=== PATIENT | female | born 1935 | race Two or more races ===

== ENCOUNTER 2018-01-11 14:01 | Outpatient (CLI) | payer OTHER | END 2018-01-11 14:10 | disposition home or self-care (01) | LOC: RAD 501 14:01 | DX: M54.5 Low back pain (principal); M25.552 Pain in left hip ==

== ENCOUNTER → 2018-01-13 | Outpatient (CLI) | payer OTHER | END | disposition home or self-care (01) | LOC: RAD 501 15:21 | DX: M54.2 Cervicalgia (principal) ==

== ENCOUNTER 2020-03-20 12:17 | Outpatient (CLI) | payer OTHER | END 2020-03-20 12:25 | disposition home or self-care (01) | LOC: RAD 12:17 | PROVIDERS: ATTEND Physical Medicine & Rehabilitation | DX: M25.462 Effusion, left knee (principal); M17.11 Unilateral primary osteoarthritis, right knee; Z91.81 History of falling ==

== ENCOUNTER → 2020-04-08 | Outpatient (CLI) | payer OTHER | END | disposition home or self-care (01) | LOC: MAMO-SONO 09:39 | PROVIDERS: ATTEND Internal Medicine Geriatric Medicine | DX: Z12.31 Encounter for screening mammogram for malignant neoplasm of breast (principal); D24.2 Benign neoplasm of left breast; D24.1 Benign neoplasm of right breast ==

== ENCOUNTER 2020-05-22 08:06 | Outpatient (CLI) | payer OTHER | END 2020-05-22 08:12 | disposition HB | LOC: MRI 08:06 | PROVIDERS: ATTEND Internal Medicine Geriatric Medicine | DX: Q44.6 Cystic disease of liver (principal); N28.89 Other specified disorders of kidney and ureter; R11.13 Vomiting of fecal matter; Q45.3 Other congenital malformations of pancreas and pancreatic duct; D49.0 Neoplasm of unspecified behavior of digestive system | CPT/HCPCS: 74181 ==

== ENCOUNTER 2021-06-24 10:52 | Outpatient (CLI) | payer OTHER | END 2021-06-24 10:55 | disposition home or self-care (01) | LOC: RAD 10:52 | PROVIDERS: ATTEND Physical Medicine & Rehabilitation | DX: M25.561 Pain in right knee (principal); M25.562 Pain in left knee ==

== ENCOUNTER 2021-07-14 08:21 | Outpatient (CLI) | payer OTHER | END 2021-07-14 08:29 | disposition home or self-care (01) | LOC: MAMO-SONO 08:21 | PROVIDERS: ATTEND Internal Medicine Geriatric Medicine | DX: Z80.3 Family history of malignant neoplasm of breast (principal) ==

== ENCOUNTER 2022-06-23 10:51 | Outpatient (CLI) | payer OTHER | END 2022-06-23 10:57 | disposition home or self-care (01) | LOC: SONOGRAMA 10:51 | PROVIDERS: ATTEND Specialist | DX: N39.0 Urinary tract infection, site not specified (principal) ==

== ENCOUNTER 2022-07-14 12:45 | Outpatient (CLI) | payer OTHER | END 2022-07-14 12:54 | disposition home or self-care (01) | LOC: TOM 12:45 | PROVIDERS: ATTEND Specialist | DX: N20.0 Calculus of kidney (principal) ==

== ENCOUNTER 2022-07-22 09:06 | Outpatient (CLI) | payer OTHER | END 2022-07-22 09:13 | disposition home or self-care (01) | LOC: MAMO-SONO 09:06 | PROVIDERS: ATTEND Internal Medicine Geriatric Medicine | DX: N60.19 Diffuse cystic mastopathy of unspecified breast (principal); D24.9 Benign neoplasm of unspecified breast; Z80.3 Family history of malignant neoplasm of breast ==

== ENCOUNTER 2022-08-20 11:53 | Outpatient (CLI) | payer OTHER | END 2022-08-20 12:04 | disposition home or self-care (01) | LOC: RAD 11:53 | PROVIDERS: ATTEND Physical Medicine & Rehabilitation | DX: M25.561 Pain in right knee (principal); M25.562 Pain in left knee; M54.59 Other low back pain ==

== ENCOUNTER 2022-10-06 13:22 | Emergency (ER) | payer OTHER ==
[~2022-10-06] VITALS: Ht 154.9 cm; Wt 60.8 kg
[2022-10-06] MEDS ORDERED: CARVEDILOL12.5 M1 (14:42)
[2022-10-06] MEDS ORDERED: CITALOPRAM HBR10 MG (14:43)
[2022-10-06] MEDS ORDERED: ALTACE1.25 MG (14:43)
[2022-10-06] MEDS ORDERED: ZOCOR20 MG (14:44)
[2022-10-06] MEDS ORDERED: CARVEDILOL12.5 MG (14:44)
[2022-10-06] MEDS ORDERED: XANAX XR0.5 MG (14:46)
== END 2022-10-06 17:57 | disposition home or self-care (01) ==
LOC: ER 13:22
DX: S29.012A Strain of muscle and tendon of back wall of thorax, initial encounter (principal); X58.XXXA Exposure to other specified factors, initial encounter; Y93.89 Activity, other specified; Y92.9 Unspecified place or not applicable; Y99.9 Unspecified external cause status; I10 Essential (primary) hypertension; Z88.8 Allergy status to other drugs, medicaments and biological substances

== ENCOUNTER 2023-01-27 10:24 | Outpatient (CLI) | payer OTHER ==
[~2023-01-27 10:24] MED LIST: ALTACE1.25 MG; ALTACE10 MG PO; CARVEDILOL12.5 M1; CARVEDILOL12.5 MG; CITALOPRAM HBR10 MG; HYDRODIURIL12.5 MG PO; MACRODANTIN100 M1 PO; NEURONTIN300 MG PO; XANAX XR0.5 MG; ZOCOR20 MG; ZOCOR20 MG PO
== END 2023-01-27 10:34 | disposition home or self-care (01) ==
LOC: MRI 10:24
PROVIDERS: ATTEND Physical Medicine & Rehabilitation
DX: M54.6 Pain in thoracic spine (principal)
CPT/HCPCS: 72146

== ENCOUNTER 2023-02-04 07:09 | Emergency (ER) | payer OTHER ==
[~2023-02-04] VITALS: Ht 154.9 cm; Wt 61.2 kg
== END 2023-02-04 08:31 | disposition home or self-care (01) ==
LOC: ER 07:10
DX: H81.10 Benign paroxysmal vertigo, unspecified ear (principal)

== ENCOUNTER 2023-03-09 08:55 | Outpatient (CLI) | payer OTHER | END 2023-03-09 09:03 | disposition home or self-care (01) | LOC: RAD 08:55 | PROVIDERS: ATTEND Physical Medicine & Rehabilitation | DX: M25.562 Pain in left knee (principal); Z88.2 Allergy status to sulfonamides; Z91.041 Radiographic dye allergy status ==

== ENCOUNTER 2023-04-05 13:44 | Outpatient (CLI) | payer OTHER | END 2023-04-05 13:49 | disposition home or self-care (01) | LOC: RAD 13:44 | PROVIDERS: ATTEND Internal Medicine Geriatric Medicine | DX: S09.90XA Unspecified injury of head, initial encounter (principal); M54.59 Other low back pain; M54.6 Pain in thoracic spine ==

== ENCOUNTER 2023-04-30 09:14 | Outpatient (CLI) | payer OTHER | END 2023-04-30 09:35 | disposition home or self-care (01) | LOC: TOM 09:14 | PROVIDERS: ATTEND Internal Medicine Geriatric Medicine | DX: Z91.81 History of falling (principal) ==

== ENCOUNTER 2023-10-26 10:49 | Outpatient (CLI) | payer OTHER | END 2023-10-26 10:53 | disposition home or self-care (01) | LOC: RAD 10:49 | PROVIDERS: ATTEND Physical Medicine & Rehabilitation | DX: M25.561 Pain in right knee (principal); M25.562 Pain in left knee ==

== ENCOUNTER 2024-05-03 14:20 | Outpatient (CLI) | payer OTHER | END 2024-05-03 14:27 | disposition home or self-care (01) | LOC: RAD 14:20 | PROVIDERS: ATTEND Internal Medicine | DX: M54.9 Dorsalgia, unspecified (principal) ==

== ENCOUNTER 2024-08-03 13:48 | Emergency (ER) | payer OTHER ==
[~2024-08-03] VITALS: Ht 157.5 cm; Wt 59.9 kg
[2024-08-03 14:05] VITALS: BP 123/61; O2SAT 95
[2024-08-03] MEDS ORDERED: PEPCID AC10 MG (14:11)
[2024-08-03] MEDS ORDERED: FAMOTIDINE/PF 20 MG/2 ML VIAL ONE (16:44)
[2024-08-03] MEDS ORDERED: ONDANSETRON HCL 2 MG/ML VIAL ONE (16:44)
[2024-08-03] MEDS ORDERED: FAMOtidine 10 MG/ML (4ML VIAL) IV PUSH ONE (16:45)
[2024-08-03] MEDS ORDERED: ONDANSETRON HCL 2 MG/ML VIAL IM ONE (16:45)
[2024-08-03 17:11] LABS: HEMATOCRIT 33.8 % (36.0-45.00); HEMOGLOBIN 11.4 g/dL (12.0-15.00); MEAN CELL VOLUME 95.8 fL (80.00-100.00); MEAN CORPUSCULAR HEMOGLOBIN 32.3 pg (27.00-32.0); MEAN CORPUSCULAR HGB CONC 33.7 g/dl (32.0-36.0); PLATELET COUNT 191 K/uL (150-450); RED BLOOD COUNT 3.53 M/uL (4.00-6.00); RED CELL DISTRIBUTION WIDTH 13.4 % (11.5-14.5)
[2024-08-03 17:56] LABS: ALBUMIN 4.2 gm/dL (3.4-5.0); BILIRUBIN TOTAL 0.7 mg/dL (0.3-1.2); CREATININE SERUM 0.82 mg/dL (0.55-1.02); GFR 65.64; GLOBULINA 4.2 G/DL (2.4-3.5); POTASSIUM 4.3 mEq/L (3.5-5.1); TOTAL PROTEIN 8.4 gm/dL (6.4-8.2)
[2024-08-03] MEDS ORDERED: DICY20TA PO (19:43)
[2024-08-03] MEDS ORDERED: PROTONIX40 MG PO (19:43)
[2024-08-03] MEDS ORDERED: NORFLEX100MG PO (19:46)
== END 2024-08-03 20:14 | disposition home or self-care (01) ==
LOC: ER 13:49
PROVIDERS: General Practice
DX: R10.13 Epigastric pain (principal); R11.2 Nausea with vomiting, unspecified

== ENCOUNTER 2024-12-07 13:56 | Outpatient (CLI) | payer OTHER ==
[~2024-12-07 13:56] MED LIST changes: +DICY20TA PO; +NORFLEX100MG PO; +PEPCID AC10 MG; +PROTONIX40 MG PO
== END 2024-12-07 14:09 | disposition home or self-care (01) ==
LOC: MAMO-SONO 13:56
PROVIDERS: ATTEND Family Medicine
DX: Z12.31 Encounter for screening mammogram for malignant neoplasm of breast (principal); I50.32 Chronic diastolic (congestive) heart failure

== ENCOUNTER 2024-12-29 10:50 | Outpatient (CLI) | payer OTHER | END 2024-12-29 10:53 | disposition home or self-care (01) | LOC: NUCLEAR 10:50 | PROVIDERS: ATTEND Family Medicine | DX: M81.0 Age-related osteoporosis without current pathological fracture (principal) ==